=== PATIENT | female | born 1945 | race African-American/Black ===

== ENCOUNTER 2018-12-06 08:33 | Observation (INO) ==
[2018-12-06] MEDS ORDERED: ASPIRIN 325 MG TABLET PO STA (10:08)
[2018-12-06 10:13] LABS: Basophils # 0.1 10*3/uL (0.0-0.2); Basophils % 1.1 % (0.0-0.8); Eosinophils # 0.2 10*3/uL (0.0-0.87); Eosinophils % 3.7 % (0.00-10.9); Hematocrit 33.4 VOL% (35.7-47.0); Hemoglobin 10.6 GM/DL (12.0-16.0); Immature Granulocytes % 0.2 %; Immature Granulocytes Absolute 0.01 #; Lymphocytes # 1.3 10*3/uL (1.4-4.0); Lymphocytes % 24.7 % (21.3-54.2); Mean Corpuscular HGB Conc 31.7 GM/DL (32-36); Mean Corpuscular Volume 89.5 FL (87-102); Mean Platelet Volume 10.9 FL (9.6-12.0); Neutrophils % 63.3 % (38.7-73.9); Platelet Count 253 T/CUMM (130-400); Red Blood Count 3.73 MC/CUMM (3.8-5.5); Red Cell Distribution Width 16.4 % (9.3-17.3); White Blood Count 5.4 T/CUMM (4-12)
[2018-12-06 10:20] LABS: Partial Thromboplastin Time 35.3 SECS (20.8-36.0)
[2018-12-06 10:25] LABS: Albumin 3.3 G/DL (3.4-5.0); Bilirubin,Total 0.4 MG/DL (0.2-1.0); Calcium 9.7 MG/DL (8.5-10.1); Osmolality,Calculated 284.8 MOS/KG (273-304); Total Protein 7.9 G/DL (6.4-8.3)
[2018-12-06] MEDS ORDERED: SODIUM CHLORIDE 0.9% 1,000 ML IV STA (10:44)
[2018-12-06] MEDS ORDERED: ALBUTEROL 2.5 MG/3 ML NEB RESP TX PRN (11:35)
[2018-12-06] MEDS ORDERED: HYDROCORTISONE 2.5% RECTAL CREAM 30 GM TUBE TOP PRN (11:35)
[2018-12-06] MEDS ORDERED: traMADol 50 MG TABLET PO PRN (11:35)
[2018-12-06] MEDS ORDERED: hydrALAZINE 20 MG/1 ML VIAL IV PRN (11:42)
[2018-12-06] MEDS ORDERED: GLUCAGON 1 MG VIAL IM PRN (11:46)
[2018-12-06] MEDS ORDERED: DEXTROSE 50% 25 GM/50 ML VIAL IV PRN (11:46)
[2018-12-06 16:25] LABS: Basophils % 0.7 % (0.0-0.8); Eosinophils # 0.2 10*3/uL (0.0-0.87); Hematocrit 32.6 VOL% (35.7-47.0); Hemoglobin 10.2 GM/DL (12.0-16.0); Immature Granulocytes % 0.2 %; Immature Granulocytes Absolute 0.01 #; Lymphocytes # 1.8 10*3/uL (1.4-4.0); Lymphocytes % 30.7 % (21.3-54.2); Mean Corpuscular HGB Conc 31.3 GM/DL (32-36); Mean Corpuscular Volume 90.1 FL (87-102); Monocytes % 9.6 % (1.7-12.7); Neutrophils % 54.8 % (38.7-73.9); Platelet Count 246 T/CUMM (130-400); Red Blood Count 3.62 MC/CUMM (3.8-5.5); Red Cell Distribution Width 16.4 % (9.3-17.3); White Blood Count 5.7 T/CUMM (4-12)
[2018-12-06] MEDS: SUCRALFATE 1 GM TABLET PO SCH ×2 (16:32→20:14)
[2018-12-06] MEDS: INSULIN LISPRO 100 UNIT/ML SUBCUT SCH ×2 (16:34→21:27)
[2018-12-06 17:03] LABS: Folate > 24.0 NG/ML (5.4-24.0); Vitamin B12 > 2000 PG/ML (211-911)
[2018-12-06 17:11] LABS: % Iron Saturation 15.2 % (18-50)
[2018-12-06] MEDS ORDERED: COLCHICINE 0.6 MG CAPSULE PO PRN (17:32)
[2018-12-06] MEDS: APIXABAN 2.5 MG TABLET PO SCH (20:14)
[2018-12-06] MEDS: PANTOPRAZOLE 40 MG TABLET PO SCH (20:14)
[2018-12-06] MEDS: carvediloL 25 MG TABLET PO SCH (20:14)
[2018-12-06] MEDS ORDERED: carvediloL 25 MG TABLET PO SCH (21:00)
[2018-12-06] MEDS ORDERED: hydroCHLOROthiazide 25 MG TABLET PO SCH (21:00)
[2018-12-07 05:39] LABS: Risk Ratio 2.93; VLDL CHOLESTEROL 23.4 MG/DL
[2018-12-07 05:46] LABS: Basophils # 0.1 10*3/uL (0.0-0.2); Basophils % 0.9 % (0.0-0.8); Eosinophils # 0.2 10*3/uL (0.0-0.87); Eosinophils % 3.6 % (0.00-10.9); Hematocrit 29.5 VOL% (35.7-47.0); Hemoglobin 9.2 GM/DL (12.0-16.0); Immature Granulocytes % 0.2 %; Immature Granulocytes Absolute 0.01 #; Lymphocytes # 1.6 10*3/uL (1.4-4.0); Lymphocytes % 28.3 % (21.3-54.2); Mean Corpuscular HGB Conc 31.2 GM/DL (32-36); Mean Corpuscular Volume 89.7 FL (87-102); Mean Platelet Volume 11.2 FL (9.6-12.0); Platelet Count 241 T/CUMM (130-400); Red Blood Count 3.29 MC/CUMM (3.8-5.5); Red Cell Distribution Width 16.4 % (9.3-17.3); White Blood Count 5.8 T/CUMM (4-12)
[2018-12-07 05:48] LABS: Free T4 (Free Thyroxine) 0.94 NG/DL (0.76-1.46); Thyroid Stimulating Hormone 2.9 uIU/ml (0.358-3.74)
[2018-12-07 07:03] LABS: Calcium 8.9 MG/DL (8.5-10.1); Osmolality,Calculated 292.3 MOS/KG (273-304)
[2018-12-07] MEDS: INSULIN LISPRO 100 UNIT/ML SUBCUT SCH (07:32)
[2018-12-07 07:40] VITALS: BP 127/68
[2018-12-07] MEDS ORDERED: KETOROLAC 30 MG/1 ML VIAL IV ONE (08:50)
[2018-12-07] MEDS ORDERED: COLCHICINE 0.6 MG CAPSULE PO SCH (09:00)
[2018-12-07] MEDS ORDERED: MULTIVITAMIN (CENTRUM) TABLET PO SCH (09:00)
[2018-12-07] MEDS ORDERED: FAMOTIDINE 20 MG TABLET PO SCH (09:00)
[2018-12-07] MEDS ORDERED: POTASSIUM CHLORIDE 10 MEQ TABLET PO SCH (09:00)
[2018-12-07] MEDS ORDERED: ATORVASTATIN 40 MG TABLET PO SCH (09:00)
[2018-12-07] MEDS ORDERED: FLUTICASONE 50 MCG NASAL SPRAY 16 GM BOTTLE BOTH NARES SCH (09:00)
[2018-12-07] MEDS ORDERED: ERGOCALCIFEROL 50,000 UNIT CAPSULE PO SCH (09:00)
[2018-12-07] MEDS ORDERED: MULTIVITAMIN (BEROCCA) TABLET PO SCH (09:00)
[2018-12-07] MEDS ORDERED: ASPIRIN EC 81 MG TABLET PO SCH (09:00)
[2018-12-07] MEDS ORDERED: SPIRONOLACTONE 25 MG TABLET PO SCH (09:00)
[2018-12-07] MEDS ORDERED: FERROUS SULFATE 325 MG TABLET PO SCH (09:00)
[2018-12-07] MEDS ORDERED: VALSARTAN 80 MG TABLET PO SCH (09:00)
[2018-12-07 10:51] LABS: Sedimentation Rate-Westergren 107 MM/HR (0-30)
[2018-12-07] MEDS: APIXABAN 2.5 MG TABLET PO SCH (11:21)
[2018-12-07] MEDS: SUCRALFATE 1 GM TABLET PO SCH (11:21)
[2018-12-07] MEDS: PANTOPRAZOLE 40 MG TABLET PO SCH (11:24)
[2018-12-07] MEDS: carvediloL 25 MG TABLET PO SCH (11:25)
== END 2018-12-07 13:00 | disposition home or self-care (01) ==
LOC: N.ED 08:33 → N.EDINP 08:33 → N.2W 12:10